=== PATIENT | male | born 1995 | race African-American/Black ===

== ENCOUNTER 2022-02-18 10:39 | Emergency (ER) | payer OTHER ==
[2022-02-18 10:54] VITALS: BP 127/75; PULSE 53; RESP 18; TEMP 98.4
[2022-02-18] MEDS ORDERED: KETOROLAC 15 MG/ML 1 ML VIAL IM STA (11:12)
[2022-02-18] MEDS ORDERED: ORPHENADRINE 30 MG/ML 2 ML VIAL IM STA (11:12)
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
== END 2022-02-18 11:41 | disposition home or self-care (01) ==
LOC: EC 10:39
DX: M54.50 Low back pain, unspecified (principal); V43.62XA Car passenger injured in collision with other type car in traffic accident, initial encounter
CPT/HCPCS: 99283; 96372; J2360; J1885

== ENCOUNTER → 2022-04-14 | Outpatient (CLI) | payer OTHER ==
--- NOTE | 2022-04-14 15:30 | XR ---
Thoracic spine. HISTORY: Back pain COMPARISON: None. TECHNIQUE: 3 views of thoracic spine were obtained. FINDINGS: The thoracic vertebral segments are normal in height and alignment and there is no fracture subluxati on. The paraspinal soft tissues are unremarkable. The disc spaces are well-maintained. IMPRESSION: No significant abnormality seen.
--- NOTE | 2022-04-14 15:31 | XR ---
Lumbar spine. HISTORY: Back pain COMPARISON: None. TECHNIQUE: 3 views of the lumbar spine were obtained. FINDINGS: Lumbar vertebral segments are normal in height and alignment and there is no fracture subluxation. Th e disc spaces are well-maintained. The facet joints are intact. The visualized sacrum and SI joints are normal. IMPRESSION: No significant abnormality seen.
== END | disposition home or self-care (01) ==
LOC: LABMAIN 14:52
PROVIDERS: ATTEND Chiropractor
DX: M54.6 Pain in thoracic spine (principal)
CPT/HCPCS: 72072; 72100

== ENCOUNTER 2022-07-29 15:51 | Emergency (ER) | payer OTHER ==
[2022-07-29 16:24] VITALS: TEMP 97.7
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
--- NOTE | 2022-07-29 17:26 | XR ---
EXAMINATION TYPE: XR chest 2V DATE OF EXAM: 07/29/2022 COMPARISON: NONE HISTORY: Chest pain TECHNIQUE: 3 views FINDINGS: Heart and mediastinum are normal. Lungs are clear. Diaphragm is normal. Bony thorax appears normal. IMPRESSION: Normal chest.
[2022-07-29 19:51] LABS: Basophils # (A) 0.1 k/uL (0-0.2); Basophils % (A) 1 %; Eosinophils # (A) 0.2 k/uL (0-0.7); Eosinophils % (A) 2 %; HCT 47.8 % (39.0-53.0); Lymphocytes # (A) 2.4 k/uL (1.0-4.8); Lymphocytes % (A) 30 %; MCH 30.5 pg (25.0-35.0); MCHC 33.4 g/dL (31.0-37.0); MCV 91.3 fL (80.0-100.0); Mean Platelet Volume 7.4; Monocytes # (A) 0.3 k/uL (0-1.0); Monocytes % (A) 4 %; Neutrophils # (A) 4.7 k/uL (1.3-7.7); Neutrophils % (A) 61 %; Platelet Count 211 k/uL (150-450); RBC 5.23 m/uL (4.30-5.90); RDW 12.7 % (11.5-15.5); WBC 7.8 k/uL (3.8-10.6)
[2022-07-29 20:01] LABS: ALT 33 U/L (4-49); AST 35 U/L (17-59); African American GFR (CKD) >90 (>60 ml/min/1.73 sqM); Albumin 4.4 g/dL (3.5-5.0); Alkaline Phosphatase 54 U/L (38-126); Anion Gap 8 mmol/L; Blood Urea Nitrogen 11 mg/dL (9-20); Calcium 9.2 mg/dL (8.4-10.2); Carbon Dioxide 28 mmol/L (22-30); Chloride 103 mmol/L (98-107); Glucose 99 mg/dL (74-99); Lipase 61 U/L (23-300); Magnesium 2.1 mg/dL (1.6-2.3); Non-African American GFR(CKD) >90 (>60 ml/min/1.73 sqM); Potassium 3.8 mmol/L (3.5-5.1); Sodium 139 mmol/L (137-145); Total Bilirubin 0.4 mg/dL (0.2-1.3); Total Protein 7.4 g/dL (6.3-8.2)
[2022-07-29 20:20] LABS: Partial Thromboplastin Time 22.3 sec (22.0-30.0); Prothrombin Time 10.6 sec (9.0-12.0)
[2022-07-29] MEDS ORDERED: KETOROLAC 15 MG/ML 1 ML VIAL IVP STA (21:10)
[2022-07-29] MEDS ORDERED: DEXAMETHASONE SOD PHOSPHATE 10 MG/ML 1 ML VIAL IVP STA (21:10)
[2022-07-29] MEDS ORDERED: LIDOCAINE 5% PATCH TOPICAL STA (21:42)
[2022-07-29 22:16] VITALS: BP 131/72; PULSE 90; RESP 16
== END 2022-07-29 22:16 | disposition home or self-care (01) ==
LOC: EC 15:51
DX: R07.89 Other chest pain (principal); F12.90 Cannabis use, unspecified, uncomplicated
CPT/HCPCS: 36415; 93005; 85379; 80053; 83690; 83735; 84484; 85025; 85610; 85730; 71046; 99285; 96374; 96375; J1100; J1885

== ENCOUNTER 2022-12-19 18:03 | Emergency (ER) | payer OTHER ==
[2022-12-19] MEDS ORDERED: KETOROLAC 15 MG/ML 1 ML VIAL IVP STA (18:22)
[2022-12-19] MEDS ORDERED: LIDOCAINE 1% INJ 10MG/ML (30 ML VIAL-PF) SQ ONE (18:23)
--- NOTE | 2022-12-19 18:34 | ED ---
General Adult HPI - General Chief complaint: Wound/Laceration Stated complaint: sliced open hand Time Seen by Provider: 12/19/22 18:18 Source: patient, RN notes reviewed Mode of arrival: ambulatory Limitations: no limitations - History of Present Illness Initial comments: 27-year-old -Serbian male with no significant past medical history presents to the emergency department with a chief complaint of right hand laceration. Patient reports that he was painting a plastic cup prior to arrival when it broke and sliced his hand. She is complaining of increased pain and bleeding the site. Denies any numbness or tingling, weakness of extremity. Denies anticoagulant use. Has not taken anything for his symptoms. - Related Data Previous Rx's Medication Instructions Recorded Cyclobenzaprine [Flexeril] 10 mg PO HS PRN #10 tab 02/18/22 Allergies Allergy/AdvReac Type Severity Reaction Status Date / Time No Known Allergies Allergy Verified 12/19/22 18:16 Review of Systems ROS Statement: Those systems with pertinent positive or pertinent negative responses have been documented in the HPI. ROS Other: All systems not noted in ROS Statement are negative. Past Medical History Past Medical History: No Reported History History of Any Multi-Drug Resistant Organisms: None Reported Past Surgical History: No Surgical Hx Reported Past Psychological History: PTSD Smoking Status: Never smoker Past Alcohol Use History: None Reported, Rare Past Drug Use History: None Reported, Marijuana General Exam - General Exam Comments Initial Comments: General: Alert, in no acute distress Head: atraumatic normocephalic. Eyes PERRL, EOMI intact, mucous membranes moist Respiratory: Lungs clear to auscultation bilaterally Cardiovascular: Heart rate regular rate and rhythm Abdominal: Soft without guarding or rebound Extremities: Normal inspection with full range of motion and normal capillary refill, right fourth anterior webspace with a 1 cm laceration with active bleeding. 2+ radial pulses distal NBI remains intact full range of motion Neuroogic: alert and oriented 3, CN II-XII intact, able to ambulate with steady gait Skin: warm dry and intact with normal color Limitations: no limitations Course Vital Signs 12/19/22 12/19/22 18:13 19:24 Temperature 99.2 F 98 F Pulse Rate 95 84 Respiratory 20 16 Rate Blood Pressure 131/83 125/72 O2 Sat by Pulse 99 99 Oximetry Procedures - Laceration Laceration #1 Consent Obtained: verbal consent Indication: laceration Site: other (5th digit) Description: linear Depth: simple, single layer Anesthetic Used: lidocaine 1% Anesthesia Technique: local infiltration Amount (mls): 10 Pre-repair: wound explored Type of Sutures: vicryl Size of Sutures: 5-0 Number of Sutures: 4 Technique: simple, interrupted Complications: pain, bleeding, nerve injury, allergic reaction Patient Tolerated Procedure: well, no complications Additional Comments: Distal NVI status post suture placement Medical Decision Making - Medical Decision Making Was pt. sent in by a medical professional or institution (, STEPHANE, SIGNALING DESIGN ENGINEER, urgent care, hospital, or [facility]...) When possible be specific @ -[No] Did you speak to anyone other than the patient for history (EMS, parent, family, police, friend...)? What history was obtained from this source @ -[No] Did you review nursing and triage notes (agree or disagree)? Why? @ -[I reviewed and agree with nursing and triage notes] Were old charts reviewed (outside hosp., previous admission, EMS record, old EKG, old radiological studies, urgent care reports/EKG's, [facility] records)? Report findings @ -[No old charts were reviewed] Differential Diagnosis (chest pain, altered mental status, abdominal pain women, abdominal pain men, vaginal bleeding, weakness, fever, dyspnea, syncope, headache, dizziness, GI bleed, back pain, seizure, CVA, palpatations, mental health, musculoskeletal)? @ -[not applicable] EKG interpreted by me (3pts min.). @ -[As above] X-rays interpreted by me (1pt min.). @ -Right hand x-ray negative for any evidence of fracture or foreign body CT interpreted by me (1pt min.). @ -[None done] U/S interpreted by me (1pt. min.). @ -[None done] What testing was considered but not performed or refused? (CT, X-rays, U/S, labs)? Why? @ -[None] What meds were considered but not given or refused? Why? @ -[None] Did you discuss the management of the patient with other professionals (professionals i.e. STEPHANE Galdamez, SIGNALING DESIGN ENGINEER, lab, RT, psych nurse, psychiatric social worker, child care center assistant director, teacher, armoured corps officer, field nurse case manager)? Give summary @ -[No] Was smoking cessation discussed for >3mins.? @ -[No] Was critical care preformed (if so, how long)? @ -[No] Were there social determinants of health that impacted care today? How? (Homelessness, low income, unemployed, alcoholism, drug addiction, transportation, low edu. Level, literacy, decrease access to med. care, senior care, rehab)? @ -[No] Was there de-escalation of care discussed even if they declined (Discuss DNR or withdrawal of care, Hospice)? DNR status @ -[No] What co-morbidities impacted this encounter? (DM, HTN, Smoking, COPD, CAD, Cancer, CVA, ARF, Chemo, Hep., AIDS, mental health diagnosis, sleep apnea, morbid obesity)? @ -[None] Was patient admitted / discharged? Hospital course, mention meds given and route, prescriptions, significant lab abnormalities, going to OR and other pertinent info. @ - Discharged. This is a 27-year-old -Serbian male who presents the emergency department with right hand laceration. Patient had a thorough history and physical exam performed on the ED. Physical exam reveals a 1 cm laceration to the right fifth digit. Patient's range of motion remains intact. No crepitus noted. No foreign bodies located. Patient had 4 stitches placed in the emergency department for which she tolerated well. He was updated on his tetanus vaccination. Return precautions were discussed at length. Patient discharged in stable condition. Case discussed with ALTAF Soler who agrees with Plan of care. Undiagnosed new problem with uncertain prognosis? @ -[No] Drug Therapy requiring intensive monitoring for toxicity (Heparin, Nitro, Insulin, Cardizem)? @ -[No] Were any procedures done? @ -[No] Diagnosis/symptom? - 5th digit laceration Acute, or Chronic, or Acute on Chronic? @ -Acute Uncomplicated (without systemic symptoms) or Complicated (systemic symptoms)? @ -uncomplicated Side effects of treatment? @ -[No] Exacerbation, Progression, or Severe Exacerbation? @ -[No] Poses a threat to life or bodily function? How? (Chest pain, [place], [place], pneumonia, PE, COPD, DKA, ARF, appy, cholecystitis, CVA, Diverticulitis, Homicidal, Suicidal, threat to staff... and all critical care pts) @ -low likelihood Disposition Clinical Impression: Laceration Disposition: HOME SELF-CARE Condition: Stable Instructions (If sedation given, give patient instructions): Care For Your Stitches (DC), Laceration (ED) Additional Instructions: Please return to the nearest emergency department for suture removal in 7-10 days Please return to the nearest emergency department symptoms worsen or persist Is patient prescribed a controlled substance at d/c from ED?: No Referrals: None,Stated [Primary Care Provider] - 1-2 days Time of Disposition: 19:10
--- NOTE | 2022-12-19 18:41 | XR ---
EXAMINATION TYPE: XR hand complete RT DATE OF EXAM: 12/19/2022 6:36 PM INDICATION: Patient age:Male; 27 years old; Reason for study: r/out FB; [facility]. COMPARISON: None TECHNIQUE: Frontal, lateral and oblique views of the right hand were obtained. FINDINGS: Normal alignment of the visualized joints. No acute osseous pathology is identified. Metal lic ring is demonstrated overlying the fourth digit. No definitive unexpected radiopaque foreign body at site of laceration between the fourth and fifth digit soft tissue. No evidence of soft tissue swe lling. IMPRESSION: 1. No acute osseous pathology. 2. No definitive unexpected radiopaque foreign body at site of laceration between the fourth and fif th digit soft tissue.
[2022-12-19] MEDS ORDERED: DIPH,PERTUS(ACELL)TETVAC-LF 0.5 ML VIAL IM ONE (19:10)
[2022-12-19 19:25] VITALS: BP 125/72; PULSE 84; RESP 16; TEMP 98
== END 2022-12-19 19:25 | disposition home or self-care (01) ==
LOC: EC 18:03
DX: S61.216A Laceration without foreign body of right little finger without damage to nail, initial encounter (principal); F12.90 Cannabis use, unspecified, uncomplicated; Z23 Encounter for immunization; W26.8XXA Contact with other sharp object(s), not elsewhere classified, initial encounter
CPT/HCPCS: 73130; 90715; 99283; 96374; 90471; 12001; J2001; J1885